=== PATIENT | male | born 1980 | race Caucasian/White ===

== ENCOUNTER 2016-06-19 08:09 | Day surgery (SDC) | payer OTHER ==
[2016-06-19 09:27] LABS: PARTIAL THROMBOPLASTIN TIME 23.6 SEC (23.5-35.8); PROTHROMBIN TIME 13.5 SEC (11.4-15.4)
[2016-06-19] MEDS ORDERED: LIDOCAINE 1% INJ-PF (10 MG/ML) 30 ML SDV ONE (09:36)
[2016-06-19 11:03] LABS: APPEARANCE ALL TUBES CLEAR
[2016-06-19 11:04] LABS: RBC DILUENT USED NONE USED; RBC DILUTION FACTOR 1; RBC SIDE 1 14; RBC SIDE 2 18; TOTAL RBC SQUARES COUNTED 225; WHITE BLOOD CELL,CSF 2 /uL (0-5)
[2016-06-19 11:23] LABS: GLUCOSE,CSF 54 mg/dL (40-70)
[2016-06-19 13:20] VITALS: BP 115/64
[2016-06-20 16:40] LABS: ALBUMIN CSF 21 mg/dL (11-48); ALBUMIN SERUM 4.5 g/dL (3.5-5.5); CSF IGG INDEX 0.5 (0.0-0.7); IGG SYNTHESIS RATE CSF -2.7 mg/day (-9.9 TO +3.3); IGG/ALBUMIN RATIO CSF 0.15 (0.00-0.25); IMMUNOGLOBULIN G CSF 3.1 mg/dL (0.0-8.6); IMMUNOGLOBULIN G SERUM 1278 mg/dL (700-1600)
[2016-06-21 07:07] LABS: CSF/SERUM ALBUMIN INDEX 5 (0-8)
== END 2016-06-19 12:55 | disposition home or self-care (01) ==
LOC: RAD 08:09
PROVIDERS: ATTEND Specialist
PROC: 009U3ZX Drainage of Spinal Canal, Percutaneous Approach, Diagnostic (ICD-10-PCS; principal; 2016-06-19)
DX: G35 Multiple sclerosis (principal)
CPT/HCPCS: 36415; 87070; 87205; 83916 ×2; 85610; 85730; 89050; 82945; 84157; 82784; 77003; 62270; J3490